=== PATIENT | male | born 1970 | race Caucasian/White ===

== ENCOUNTER 2020-06-14 11:22 | Outpatient (REF) | payer BC, SELFPAY | END 2020-06-14 11:23 | disposition home or self-care (01) | LOC: HO.LAB 11:22 | PROVIDERS: Visit Provider Internal Medicine | DX: Z20.828 Contact with and (suspected) exposure to other viral communicable diseases (principal) | CPT/HCPCS: C9803; U0003 ==

== ENCOUNTER 2021-07-23 17:39 | Emergency (ER) | payer BC, SELFPAY ==
--- NOTE | ~2021-07-23 | XR_ITS ---
EXAMINATION: XR CHEST CLINICAL INFORMATION: Chest pain. COMPARISON: None TECHNIQUE: Frontal view of the chest was obtained. FINDINGS: No significant abnormality is noted involving the heart, lungs, mediastinum, bony thorax or soft tissues. XR/XR chest 1V IMPRESSION: Unremarkable chest examination.
[2021-07-23 17:56] VITALS: BP 176/100; PULSE 64; RESP 18; TEMP 36.7; O2SAT 98; BMI 36.9
[2021-07-23 18:12] LABS: MANUAL DIFF FLAG NO
[2021-07-23 18:35] LABS: Troponin-I High Sensitivity < 3.5 ng/L (<3.5-35.0)
[2021-07-23 18:47] LABS: Basophils Absolute Auto 0.1 X10*3/uL (0.0-0.2); Basophils Percent Auto 0.8 % (0-2); Eosinophils Absolute Auto 0.1 X10*3/uL (0.0-0.4); Eosinophils Percent Auto 1.4 % (0-4); Hematocrit 43.1 % (42.0-52.0); Hemoglobin 14.8 g/dl (14.0-18.0); Imm Gran Abs Auto 0.03 X10*3/uL (0.00-0.03); Imm Gran Pct Auto 0.3 % (0.0-0.4); Lymphocytes Absolute Auto 2.4 X10*3/uL (1.2-4.9); Lymphocytes Percent Auto 26.4 % (20-40); Mean Corpuscular HGB Conc 34.3 g/dl (31.0-36.0); Mean Corpuscular Hemoglobin 28.5 pg (27.0-33.0); Mean Platelet Volume 10.4 fL (9.4-12.4); Monocytes Absolute Auto 0.5 X10*3/uL (0.1-1.2); Monocytes Percent Auto 5.1 % (2-11); Neutrophils Absolute Auto 5.9 x10*3/uL (2.0-8.3); Platelet Count 220 X10*3/uL (160-400); Red Blood Count 5.19 X10*6/uL (4.60-5.80); Red Cell Distribution Width 13.3 % (11.0-16.0)
[2021-07-23 22:31] VITALS: BP 164/88; PULSE 55; RESP 18; TEMP 36.7; O2SAT 97
--- NOTE | 2021-07-23 22:34 | ECG_ITS ---
Test Reason : CHEST PAIN Blood Pressure : / mmHG Vent. Rate : 055 BPM Atrial Rate : 055 BPM P-R Int : 170 ms QRS Dur : 090 ms QT Int : 450 ms P-R-T Axes : 060 046 017 degrees QTc Int : 430 ms Sinus bradycardia Otherwise normal ECG When compared with ECG of 23-JUL-2021 17:58, No significant change was found Referred By: Princess Smith Electronically Signed By:Juanito Pérez
[2021-07-23 22:41] LABS: Alanine Aminotransferase 51 U/L (0-40); Albumin Level 4.7 g/dL (3.5-5.0); Alkaline Phosphatase 80 U/L (39-117); Anion Gap 12 (12-20); Aspartate Amino Transferase 34 U/L (5-37); Bilirubin Total 0.5 mg/dL (0.0-1.0); Blood Urea Nitrogen 19 mg/dL (9-16); Calcium 9.8 mg/dL (8.4-10.2); Carbon Dioxide 28 mmol/L (22-29); Chloride 103 mmol/L (96-108); Creatinine Clr Calc Pharmacy 111.9; Estimated Glomerular Filt Rate > 60; Glucose Random 99 mg/dL (60-115); Sodium 139 mmol/L (135-145); Total Protein 7.5 g/dL (6.5-8.0)
[2021-07-23 23:22] LABS: Lipase 34 U/L (8-78)
[2021-07-23 23:46] LABS: Troponin-I High Sensitivity < 3.5 ng/L (<3.5-35.0)
--- NOTE | 2021-07-23 23:47 | ED_ITS ---
HPI - Chest Pain General Chief Complaint: Chest Pain Stated Complaint: chest and arm pain,sob Time Seen by Provider: 07/23/21 22:34 Source: patient Mode of arrival: ambulatory Limitations: no limitations History of Present Illness HPI narrative: this is a 50-year-old male past medical history significant for anxiety, hypertension, high cholesterol presenting to the emergency department with chest and headache. Patient tells me that chest pain started suddenly around 15:00 while he was sitting at his desk he tells me was substernal in nature and radiated to his left arm, he tells me he felt tingling to his left arm initially. At this time he reports no chest pain, he tells me it subsided. He also reports a frontal headache, described as bilateral, tightness to the front of the head. Tells me it feels like his typical stress headache. Patient tells me he is under lot of stress. No significant personal history of cardiac disease. Patient does not smoke. Patient tells me that his mom and dad both had heart attacks at the age is 60. He tells me that these episodes happen frequently however today's episode was more severe in nature. He denies fevers, chills, shortness of breath, nausea, vomiting, abdominal pain, back pain, neck pain , dizziness, vision changes, trauma to head. He does report good amount of anxiety. Patient tells me that when this episode happened he was not short of breath or diaphoretic. complaint: chest pain Onset (ago): hour(s) (9) Timing of current episode: episodic and now resolved Prior episodes: Yes Onset: during rest Pain location: substernal Pain radiation: left arm Severity: severe Pain scale (0-10): 10 Quality: sharp Relieving factors: nothing Exacerbating factors: nothing Treatment prior to arrival: none Related Data Previous Rx's Medication Instructions Recorded cyclobenzaprine 10 mg tablet 10 mg PO BEDTIME PRN #10 tab 07/24/21 Allergies Allergy/AdvReac Type Severity Reaction Status Date / Time No Known Allergies Allergy Unverified 02/28/20 15:06 Review of Systems Review of Systems: Constitutional : No Weight loss, No Fever, No Chills, No Fatigue, No Malaise ENT/Mouth : No sore throat, No Rhinorrhea Eyes: No Eye Pain, No Swelling, No Redness Cardiovascular : No Chest Pain, No SOB, No Dyspnea on Exertion, No Orthopnea, No Edema, No Palpitations Respiratory : No Cough, No Sputum, No Wheezing Gastrointestinal : No Nausea, No Vomiting, No Diarrhea, No Constipation, No abdominal Pain, No Hematochezia, No Melena Genitourinary : No Dysuria, No Urinary Frequency, No Hematuria, Musculoskeletal : No joint pain, No Myalgias, No Joint Swelling Skin : No Skin Lesions, No rash Neuro : No Weakness, No Numbness, No Dizziness, + Headache All other systems reviewed and are negative Yes all other systems are reviewed and are negative [facility] Past Medical History Attestation statement: The following information was validated with the patient. Source: old records reviewed and nursing notes reviewed Medical History High cholesterol HTN (hypertension) Pre-diabetes Social History Social History Advance Directives: No Advance Directives Information Provided: No Physical Exam Vital Signs: Vital Signs: Last Vital Signs Temp 98.1 F 07/23/21 22:31 Pulse 55 07/23/21 22:31 Resp 18 07/23/21 22:31 BP 164/88 H 07/23/21 22:31 Pulse Ox 97 07/23/21 22:31 BMI result Body Mass Index 36.9 VSS Appearance: Alert.? Oriented X3.? No acute distress.? Head: Normocephalic, atraumatic, no step-offs or deformities Eyes: Pupils equal, round and reactive to light.? ENT: Pharynx normal.? Neck: Normal inspection.? Neck supple.? CVS: Normal heart rate and rhythm.? Pulses normal.? Respiratory: No respiratory distress.? Breath sounds normal.? Abdomen: Soft and nontender.? Skin: Skin warm and dry.? Normal skin color.? Normal skin turgor.? Extremities: No lower extremity edema.? No calf ttp. 5/5 strength to bilateral upper and lower extremities Back: No midline tenderness, no C-spine tenderness, full range of motion, no CVA tenderness bilaterally Neuro: Oriented X 3.? No motor deficit.? No sensory deficit. Normal eusslt-[id number], xevt-wp-[id number], normal tandem gait. Course Reevaluation(s) Reevaluation #1: Patient's CBC within normal limits. Chemistry without acute electrolyte abnormalities. Troponin negative x2. EKG nonischemic it shows normal sinus rhythm with normal rate, normal WY, normal QT / QTC. Vital signs stable. Unlikely that chest pain is ACS. Likely anxiety. CXR wnl. At this time I feel as though patient is safe for discharge home, he should follow-up with his PCP and Cardiology. I will provide him cardiology's information I have advised him to call tomorrow to schedule an appointment as he may require a Holter monitor for further evaluation. I have given patient strict return precautions outlined them on his discharge, advised him to return if new or worsening symptoms. Time: 23:53 Reevaluation #2: Repeat EKG sinus bradycardia no signs of acute ischemia. Patient much more relaxed, tells me he is feeling, at this time. Comfortable discharge home. Patient denies CP, SOB, EATON at this time Time: 00:26 MDM - Chest Pain MDM Narrative Medical decision making narrative: 50 yo m pmhx HTN, hypercholesterolemia, anxiety presents with sudden onset substernal chest pain w/ radiation to left arm X1 episode around 3:00pm since then has subsided. PE benign Patient's neuro exam nonfocal, normal cerebellar function, unlikely stroke or posterior infarct. Unlikely intracranial hemorrhage, patient is not on blood thinners, feels like his typical headache, no vision changes or dizziness. No need for imaging at this time. Patient's chest pain has now subsided, unlikely that this is ACS. History and physical examination not consistent with aortic dissection. History and physical also not consistent with pulmonary embolism. Plan- labs, ekg, trop. Medical Records Data Attestation: I reviewed the patient's medical records. Lab Data Attestation: I reviewed the patient's lab results. Result diagrams: 07/23/21 18:08 07/23/21 21:55 Labs: Lab Results 07/23/21 07/23/21 07/23/21 Range/Units 18:07 18:08 21:55 WBC 9.0 (4.8-10.8) X10*3/uL RBC 5.19 (4.60-5.80) X10*6/uL Hgb 14.8 (14.0-18.0) g/dl Hct 43.1 (42.0-52.0) % MCV 83.0 (80.0-98.0) fL MCH 28.5 (27.0-33.0) pg MCHC 34.3 (31.0-36.0) g/dl RDW 13.3 (11.0-16.0) % Plt Count 220 (160-400) X10*3/uL MPV 10.4 (9.4-12.4) fL Immature Gran % (Auto) 0.3 (0.0-0.4) % Neut % (Auto) 66.0 (45-73) % Lymph % (Auto) 26.4 (20-40) % [place] % (Auto) 5.1 (2-11) % Eos % (Auto) 1.4 (0-4) % Baso % (Auto) 0.8 (0-2) % Lymph # (Auto) 2.4 (1.2-4.9) X10*3/uL [place] # (Auto) 0.5 (0.1-1.2) X10*3/uL Eos # (Auto) 0.1 (0.0-0.4) X10*3/uL Baso # (Auto) 0.1 (0.0-0.2) X10*3/uL Abs Immat Gran (auto) 0.03 (0.00-0.03) X10*3/uL Absolute Neuts (auto) 5.9 (2.0-8.3) x10*3/uL Absolute Nucleated RBC 0.000 (0.0-0.012) X10*3/uL Nucleated RBC % (auto) 0.0 (0.0-0.2) /100WBC Sodium 139 (135-145) mmol/L Potassium 4.0 (3.3-5.1) mmol/L Chloride 103 (96-108) mmol/L Carbon Dioxide 28 (22-29) mmol/L Anion Gap 12 (12-20) BUN 19 H (9-16) mg/dL Creatinine 1.09 (0.5-1.4) mg/dL Estim Creat Clear Calc 111.9 Estimated GFR > 60 Random Glucose 99 (60-115) mg/dL Calcium 9.8 (8.4-10.2) mg/dL Total Bilirubin 0.5 (0.0-1.0) mg/dL AST 34 (5-37) U/L ALT 51 H (0-40) U/L Alkaline Phosphatase 80 (39-117) U/L Troponin I High Sens < 3.5 (<3.5-35.0) ng/L Total Protein 7.5 (6.5-8.0) g/dL Albumin 4.7 (3.5-5.0) g/dL Lipase 34 (8-78) U/L 07/23/21 Range/Units 22:47 WBC (4.8-10.8) X10*3/uL RBC (4.60-5.80) X10*6/uL Hgb (14.0-18.0) g/dl Hct (42.0-52.0) % MCV (80.0-98.0) fL MCH (27.0-33.0) pg MCHC (31.0-36.0) g/dl RDW (11.0-16.0) % Plt Count (160-400) X10*3/uL MPV (9.4-12.4) fL Immature Gran % (Auto) (0.0-0.4) % Neut % (Auto) (45-73) % Lymph % (Auto) (20-40) % [place] % (Auto) (2-11) % Eos % (Auto) (0-4) % Baso % (Auto) (0-2) % Lymph # (Auto) (1.2-4.9) X10*3/uL [place] # (Auto) (0.1-1.2) X10*3/uL Eos # (Auto) (0.0-0.4) X10*3/uL Baso # (Auto) (0.0-0.2) X10*3/uL Abs Immat Gran (auto) (0.00-0.03) X10*3/uL Absolute Neuts (auto) (2.0-8.3) x10*3/uL Absolute Nucleated RBC (0.0-0.012) X10*3/uL Nucleated RBC % (auto) (0.0-0.2) /100WBC Sodium (135-145) mmol/L Potassium (3.3-5.1) mmol/L Chloride (96-108) mmol/L Carbon Dioxide (22-29) mmol/L Anion Gap (12-20) BUN (9-16) mg/dL Creatinine (0.5-1.4) mg/dL Estim Creat Clear Calc Estimated GFR Random Glucose (60-115) mg/dL Calcium (8.4-10.2) mg/dL Total Bilirubin (0.0-1.0) mg/dL AST (5-37) U/L ALT (0-40) U/L Alkaline Phosphatase (39-117) U/L Troponin I High Sens < 3.5 (<3.5-35.0) ng/L Total Protein (6.5-8.0) g/dL Albumin (3.5-5.0) g/dL Lipase (8-78) U/L ECG Data ECG #1: Attestation: I personally reviewed and interpreted this ECG as follows: ECG interpretation date: 07/24/21 ECG interpretation time: 00:00 Prior ECG tracings: available for review Interpretation: Ventricular rate of 65, WY normal, QRS normal, QT / QTC normal. EKG shows normal sinus rhythm no ST elevations concerning for ischemia. No previous to compare with. ECG #2: Attestation: I personally reviewed and interpreted this ECG as follows: ECG interpretation date: 07/24/21 ECG interpretation time: 00:26 Prior ECG tracings: available for review Interpretation: Ventricular rate of 55, WY normal, QRS normal, QT / QTC normal. EKG shows sinus bradycardia. No ST elevations or inversions concerning for ischemia. Patient is now in sinus bradycardia on much more calm than when it the 1st EKG was obtained. Critical Care Time Critical Care Time Critical Care Time: No Discharge Plan Discharge Clinical Impression: Chest pain not due to acute coronary syndrome, Acute tension headache Patient Disposition: Home, Self-Care Additional Instructions: Take your medications as prescribed. If you were prescribed antibiotics today, it is important that you take your medication to their entirety, do not skip any doses, do not finish them early. Follow-up with your primary care provider this week . Please call cardiology tomorrow to schedule an appointment. Return to the emergency department with new or worsening symptoms. Such as chest pain, shortness of breath, headache, vision changes, dizziness, lethargy, changes in mentation, fevers, chills, nausea, vomiting, abdominal pain. In case of emergency call 911 Prescriptions: New cyclobenzaprine 10 mg tablet 10 mg PO BEDTIME PRN (Reason: muscle spasm) Qty: 10 0RF Referrals: Juanis Gutiérrez MD [Primary Care Provider] - 2 days Juanito Pérez MD [Physician] - 2 days Stand Alone Forms: Work/School Release
[2021-07-23] MEDS: Cyclobenzaprine HCl 10 MG TABLET PO (23:55)
[2021-07-23] MEDS: Ketorolac Tromethamine 30 MG/ML VIAL IM (23:55)
--- NOTE | 2021-07-23 23:59 | ECG_ITS ---
Test Reason : CHEST PAIN Blood Pressure : / mmHG Vent. Rate : 065 BPM Atrial Rate : 065 BPM P-R Int : 168 ms QRS Dur : 090 ms QT Int : 402 ms P-R-T Axes : 060 049 030 degrees QTc Int : 418 ms Normal sinus rhythm Normal ECG No previous ECGs available Referred By: Princess Smith Electronically Signed By:Juanito Pérez
[2021-07-24 00:28] VITALS: BP 174/95; PULSE 51; RESP 18; O2SAT 112
== END 2021-07-24 00:43 | disposition home or self-care (01) ==
PROVIDERS: Physician Assistant; Emergency Provider Emergency Medicine; PCP Internal Medicine
DX: R07.89 Other chest pain (principal); G44.209 Tension-type headache, unspecified, not intractable; R06.02 Shortness of breath; M79.602 Pain in left arm; M79.601 Pain in right arm; Z79.899 Other long term (current) drug therapy
CPT/HCPCS: 36415; 71045; 80053; 83690; 84484; 85025; 93005; 96372; 99284; J1885

== ENCOUNTER → 2021-07-29 13:55 | Outpatient (BNVA) | payer BC, SELFPAY | PROVIDERS: PCP Internal Medicine; Visit Provider Nurse Practitioner Family ==

== ENCOUNTER → 2021-08-10 07:17 | Outpatient (REF) | payer BC, SELFPAY ==
--- NOTE | 2021-08-10 07:26 | CA_ITS ---
Transthoracic Echocardiogram Patient (Last, First, Middle): Nicko Gentile P Gender: Male Date of : 1970 Age: 50 Procedure Date: 08/10/2021 Procedure Type: Transthoracic Echocardiogram Location: OP Height: 185.42 cm Weight: 127.01 kg BSA: 2.48 m2 Heart Rate: bpm BP: 135 / 82 mmHg Peripheral Equipment Operator: JOLYNN Referring MD: Brittaney Christine DICTATING MACHINE TYPIST-C Symptoms: G47.30 - Sleep apnea, unspecified Study Quality: Fair ECG Rhythm: Sinus Conclusions: - The left ventricular systolic function is normal. The calculated ejection fraction is 58% by biplane method. - No obvious valvular pathology seen on this study. - There is mild dilatation of the ascending aorta measuring 4.00 cm. Findings Left Ventricle Normal left ventricular cavity size. The left ventricular systolic function is normal. The calculated ejection fraction is 58% by biplane method. There is no evidence of regional wall motion abnormalities. Diastolic function is normal for age. There is mild septal asymmetric hypertrophy. Right Ventricle Normal right ventricular cavity size and systolic function. Atria Both atria are normal in size. Aortic Valve There is a normal trileaflet aortic valve. There is no aortic valve stenosis. There is no aortic valve regurgitation. Mitral Valve The mitral valve appears normal. There is no mitral valve regurgitation. There is no mitral valve stenosis. Pulmonic Valve The pulmonic valve was not well visualized. Tricuspid Valve There is trace tricuspid valve regurgitation. The pulmonary artery systolic pressure is normal. Great Vessels There is mild dilatation of the ascending aorta measuring 4.00 cm. Venous The inferior vena cava is normal in size and collapses greater than 50% with inspiration. Pericardium/Pleural There is no evidence of pericardial effusion. Prior Study Comparison No prior study available for comparison. Recommendations, Care & Conclusions No obvious valvular pathology seen on this study. Measurements 2D Linear Measurements IVSd: 1.15 0.6-0.9/0.6-1.0 cm LVIDd: 5.38 3.9-5.3/4.2-5.9 cm LVIDd Index: 2.17 2.4-3.2/2.2-3.1 cm/m2 LVIDs: 2.64 2.0-3.6 cm LVPWd: 0.89 0.7-1.1 cm Ao Root: 3.60 2.1-3.5 cm LA Diam: 3.70 2.7-3.8/3.0-4.0 cm LAIDs Index: 1.49 1.5-2.3 cm/m2 LV Mass: 262.57 67-162/88-224 g LV Mass Index: 105.87 43-95/49-115 g/m2 LVOT Diam: 2.30 3.0+(-)1.3 cm 2D Systolic Function EF 4C: 59.90 >55% EF 2C: 56.20 >55% EF BiP: 57.70 >55% Mitral Valve MV Pk E: 0.78 MV PK A: 0.69 MV Decel Time: 241.00 E/A: 1.10 E'Lateral: 10.30 E'Medial: 6.96 E/E' Med: 11.30 E/E' Lat: 7.60 PHT: 71.00 MVA PHT: 3.10 Decel [place]: 3.25 Aortic Valve AoV Pk [place]: 1.41 AoV Mn [place]: 1.06 AoV VTI: 0.36 AoV Pk Grad: 8.00 Aov Mn Grad: 5.00 CANDACE Cont.VTI: 2.77 LVOT LVOT Pk [place]: 1.08 LVOT Mn [place]: 0.68 LVOT VTI: 0.24 LVOT Pk Grad: 5.00 LVOT Mn Grad: 2.00 LVOT Diam: 2.30 LVOT Area: 4.15 Diastolic Function MV Pk E: 0.78 MV Pk A: 0.69 E/A: 1.10 E'Medial: 6.96 E/E' Med: 11.30 E' Laterial: 10.30 E/E' Lat: 7.60 Right Ventricle TAPSE (mm): 19.40 TVS' [place]: 12.70 Tricuspid Valve TR Pk [place]eb[place]: 1.25 TR Pk Grad: 6.00 RA Press: 3.00 RVSP: 9.00 Great Vessels Aorta Ao Root-2D: 3.60 2.0-3.7 cm Ao Asc: 4.00 2.1-3.4 cm Ao Arch: 3.40 Pulmonary Valve PV Pk [place]: 1.32 Peak PV Grad: 7.00 Updated in Other Vendor System with Status of Final Marcos Dempsey MD electronically signed on 08/10/2021 12:36:14 PM with status of Final
== END ==
LOC: HO.CARD 07:17
PROVIDERS: Visit Provider Nurse Practitioner Family
DX: R07.89 Other chest pain (principal); E78.00 Pure hypercholesterolemia, unspecified; G47.30 Sleep apnea, unspecified; I10 Essential (primary) hypertension; R73.03 Prediabetes; Z82.49 Family history of ischemic heart disease and other diseases of the circulatory system
CPT/HCPCS: 93306

== ENCOUNTER → 2021-08-13 09:41 | Outpatient (REF) | payer BC, SELFPAY ==
--- NOTE | ~2021-08-13 | NM_ITS ---
Exercise Myocardial perfusion study Indication: Chest pain to evaluate for myocardial ischemia Technique: The patient was brought in for an exercise perfusion study on 08/13/2021. Patient performed exercise as per Bryant protocol and was injected 45 mCi of sestamibi was given intravenously one target HR was achieved. Images were obtained using the SPECT gamma camera interlaced with the gating device. Images were obtained in supine position. Resting perfusion study was performed on 08/17/2021. Patient was administered 45 mCi of sestamibi intravenously at rest. Images were then obtained in supine position. Images obtained with and without CT attenuation. Total DLP 140 mGy-cm Images were processed with the software and compared side to side in short axis, horizontal long axis and vertical long axis views. Findings: The stress perfusion study showed non attenuated images show mildly reduced uptake in the basal anterior and basal inferior wall of the LV myocardium. Attenuation corrected images show minimally reduced uptake in the distal septum and apex of the LV myocardium.. The gated study shows normal LV systolic function with calculated LVEF of 63%. LV cavity is normal in size. The gated study shows normal systolic wall thickening and contraction of all segments. There is no transient ischemic dilation. Resting study shows non attenuated images show mildly reduced uptake in the anterior wall as well as the basal inferior wall of the LV myocardium. Attenuation corrected images show moderately reduced uptake in a small focal area of the distal anterior wall of the LV myocardium.. Gating at rest reveals normal systolic wall motion with visually estimated ejection fraction at greater than 60 %. The findings are consistent with likely normal myocardial perfusion. NM/NM cardiolite stress test Impression: 1. Normal myocardial perfusion 2. Gated LVEF is 63% 3. Transient ischemic dilatation not present Stress EKG is negative for ischemia
--- NOTE | 2021-08-13 09:44 | CA_ITS ---
Acquisition Time: 2021-08-13 10:08:25 Total Exercise Time: 00:10:00 Test Indications: CP Medications: SEE CHART Protocol: ELADIO Max HR: 150 BPM 88% of Pred: 169 BPM Max BP: 190/108 mmHG Max Work Load: 11.7 METS Exercise stress test with exercise 10 min of Eladio protocol, without anginal symptoms, without arrythmia, with normotensive response to execise, without EKG changes meeting criteria for ischemia. Nuclear images pending. Test reviewed with Dr Pérez. On arrival to stress lab, BP 190/108. He reported anxiety. Allowed to rest in recliner until BP down to 158/96 prior to start of exercise. Referred By: Brittaney Christine Overread By: BRITTANEY CHRISTINE
== END ==
LOC: HO.CARD 09:41
PROVIDERS: Visit Provider Nurse Practitioner Family
DX: R07.89 Other chest pain (principal); I10 Essential (primary) hypertension; E78.00 Pure hypercholesterolemia, unspecified; G47.30 Sleep apnea, unspecified; R73.03 Prediabetes; Z82.49 Family history of ischemic heart disease and other diseases of the circulatory system
CPT/HCPCS: 78452; 93017; A9500

== ENCOUNTER → 2021-09-10 12:50 | Outpatient (BNVA) | payer BC, SELFPAY | PROVIDERS: PCP Internal Medicine; Visit Provider Nurse Practitioner Family | DX: Z13.89 Encounter for screening for other disorder (principal) ==

== ENCOUNTER → 2022-08-11 08:23 | Outpatient (REF) | payer BC, SELFPAY ==
--- NOTE | 2022-08-11 08:26 | CA_ITS ---
Transthoracic Echocardiogram Patient (Last, First, Middle): Nicko Gentile P Gender: Male Date of : 1970 Age: 51 Procedure Date: 08/11/2022 Procedure Type: Transthoracic Echocardiogram Location: OP Height: 185.42 cm Weight: 126.55 kg BSA: 2.48 m2 Heart Rate: 61 bpm BP: 114 / 68 mmHg Finishing Trimmer: SARA Referring MD: Brittaney Christine UNDERWEAR TRIMMER-C Art Therapy Certified Supervisor: Nate Stauffer MD Symptoms: I77.810 - Thoracic aortic ectasia Study Quality: Adequate w contrast ECG Rhythm: Sinus Conclusions: - 1. Normal LV systolic function with mild LVH with impaired relaxation abnormality 2. Normal cardiac valvular Doppler 3. Normal RVSP 4. Mildly dilated ascending aorta at 4 cm 5. No gross pericardial effusion. Findings Procedure Information Contrast agent, definity, is being given per protocol without apparent complications. Left Ventricle Normal left ventricular size and systolic function. There is mildly increased left ventricular wall thickness. The visually estimated ejection fraction is between 60-65%. Spectral Doppler is indicative of an impaired relaxation filling pattern. E/E prime ratio is between 8 and 15 consistent with indeterminate filling pressures. Right Ventricle Normal right ventricular cavity size and systolic function. Atria The left atrium is normal in size. Interatrial shunt cannot be excluded. The right atrium was not well visualized. Aortic Valve Normal aortic valve structure and function. There is no aortic valve stenosis. There is no aortic valve regurgitation. Mitral Valve Normal mitral valve structure and function. There is trace mitral valve regurgitation. There is no mitral valve stenosis. Pulmonic Valve The pulmonic valve was not well visualized. Tricuspid Valve Likely normal tricuspid valve structure and function. There is trace tricuspid valve regurgitation. The right ventricular systolic pressure is normal. Normal right atrial pressure. Great Vessels The pulmonary artery was not well visualized. There is mild dilatation of the ascending aorta measuring 4.00 cm. Venous The inferior vena cava is normal in size and collapses greater than 50% with inspiration. Pericardium/Pleural There is no evidence of pericardial effusion. Prior Study Comparison No significant change compared to prior study dated: 08/10/2021. Measurements 2D Linear Measurements IVSd: 1.25 0.6-0.9/0.6-1.0 cm LVIDd: 5.53 3.9-5.3/4.2-5.9 cm LVIDd Index: 2.23 2.4-3.2/2.2-3.1 cm/m2 LVIDs: 3.43 2.0-3.6 cm LVPWd: 1.04 0.7-1.1 cm LA Diam: 3.60 2.7-3.8/3.0-4.0 cm LAIDs Index: 1.45 1.5-2.3 cm/m2 LV Mass: 321.46 67-162/88-224 g LV Mass Index: 129.62 43-95/49-115 g/m2 LVOT Diam: 2.30 3.0+(-)1.3 cm 2D Systolic Function EF 4C: 64.30 >55% EF 2C: 61.50 >55% EF BiP: 61.10 >55% Mitral Valve MV Pk E: 0.68 MV PK A: 0.66 MV Decel Time: 242.00 E/A: 1.00 E'Lateral: 7.40 E'Medial: 6.20 E/E' Med: 11.00 E/E' Lat: 9.20 PHT: 71.00 MVA PHT: 3.10 Decel [place]: 2.82 Aortic Valve AoV Pk [place]eb[place]: 1.36 AoV Pk Grad: 7.00 CANDACE: 2.75 LVOT LVOT Pk [place]: 0.90 LVOT Mn [place]: 0.65 LVOT VTI: 0.19 LVOT Pk Grad: 3.00 LVOT Mn Grad: 2.00 LVOT Diam: 2.30 LVOT Area: 4.15 Diastolic Function MV Pk E: 0.68 MV Pk A: 0.66 E/A: 1.00 E'Medial: 6.20 E/E' Med: 11.00 E' Laterial: 7.40 E/E' Lat: 9.20 Right Ventricle TAPSE (mm): 20.90 TVS' [place]: 14.30 Tricuspid Valve RA Press: 3.00 Great Vessels Aorta Sinus of Valsalva: 3.60 2.0-3.5 cm Ao Asc: 4.00 2.1-3.4 cm Ao Arch: 3.40 Ao Desc: 2.30 Pulmonary Veins Pulm Vein S/D 1.00 Pulmonary Valve PV Pk Beb[place]: 1.34 Peak PV Grad: 7.00 Updated in Other Vendor System with Status of Final Nate Stauffer MD electronically signed on 08/12/2022 12:19:13 PM with status of Final
== END ==
LOC: HO.CARD 08:23
PROVIDERS: PCP Nurse Practitioner Family; Visit Provider Nurse Practitioner Family
DX: R07.89 Other chest pain (principal); I77.810 Thoracic aortic ectasia; G47.30 Sleep apnea, unspecified
CPT/HCPCS: 93306; Q9957

== ENCOUNTER → 2022-09-09 14:29 | Outpatient (BNVA) | payer BC, SELFPAY | PROVIDERS: PCP Nurse Practitioner Family; Visit Provider Internal Medicine Cardiovascular Disease | DX: I10 Essential (primary) hypertension (principal); I77.810 Thoracic aortic ectasia | CPT/HCPCS: 93005 ==

== ENCOUNTER → 2022-09-24 14:49 | Outpatient (BNVA) | payer BC, SELFPAY | PROVIDERS: PCP Nurse Practitioner Family; Visit Provider Internal Medicine Cardiovascular Disease | DX: Z79.899 Other long term (current) drug therapy (principal) | CPT/HCPCS: 99211 ==

== ENCOUNTER → 2022-10-20 08:19 | Outpatient (BNVA) | payer BC, SELFPAY | PROVIDERS: PCP Nurse Practitioner Family; Visit Provider Nurse Practitioner Family ==

== ENCOUNTER → 2022-12-09 15:31 | Outpatient (BNVA) | payer BC, SELFPAY | PROVIDERS: PCP Nurse Practitioner Family; Referring Provider Nurse Practitioner Family; Visit Provider Nurse Practitioner Family ==

== ENCOUNTER 2023-01-20 09:16 | Outpatient (REF) | payer BC, SELFPAY ==
[2023-01-20 10:44] LABS: Alanine Aminotransferase 33 U/L (0-40); Albumin Level 4.5 g/dL (3.5-5.0); Alkaline Phosphatase 66 U/L (39-117); Anion Gap 11 (12-20); Aspartate Amino Transferase 21 U/L (5-37); Bilirubin Total 0.6 mg/dL (0.0-1.0); Blood Urea Nitrogen 15 mg/dL (9-16); Calcium 9.8 mg/dL (8.4-10.2); Carbon Dioxide 27 mmol/L (22-29); Chloride 107 mmol/L (96-108); Estimated Glomerular Filt Rate > 60; Glucose Random 107 mg/dL (60-115); Sodium 141 mmol/L (135-145); Total Protein 7.5 g/dL (6.5-8.0)
[2023-01-20 11:18] LABS: Estimated Average Glucose 114 mg/dL; Hemoglobin A1c % 5.6 %
== END 2023-01-20 09:17 | disposition home or self-care (01) ==
LOC: HO.LAB 09:16
PROVIDERS: Visit Provider Nurse Practitioner Family
DX: I10 Essential (primary) hypertension (principal); R73.03 Prediabetes
CPT/HCPCS: 36415; 80053; 83036

== ENCOUNTER 2024-11-01 09:35 | Outpatient (AMB) | payer BC, SELFPAY ==
--- OUTSIDE RECORDS SUMMARY | 2024-11-01 09:52 | XMS_ITS | Clinical Summary ---
Author Organization [facility] Address [address] [place] [id number] Care Team Providers Care Physical Therapy Teacher Name Role Phone Juanis Gutiérrez MD Primary Care Provider [phone] Medications Medication Sig Dispensed Refills Start Date End Date Status amLODIPine (NORVASC) tablet 10 mg Take 10 mg by mouth daily. 0 10/27/2020 Active hydroCHLOROthiazide (HYDRODIURIL) tablet 25 mg TAKE ONE TABLET BY MOUTH EVERY DAY 0 11/04/2020 Active Social History Tobacco Use Types Packs/Day Years Used Date Smoking Tobacco: Never Assessed Sex and Gender Information Value Date Recorded Sex Assigned at Not on file Gender Identity Not on file Sexual Orientation Not on file Job Start Date Occupation Industry Not on file Not on file Not on file Last Filed Vital Signs Vital Sign Reading Time Taken Comments Blood Pressure - - Pulse - - Temperature - - Respiratory Rate - - Oxygen Saturation - - Inhaled Oxygen Concentration - - Weight 99.8 kg (220 lb) 07/15/2020 3:32 PM EST Height 185.4 cm (6' 1 ) 07/15/2020 3:32 PM EST Body Mass Index 29.03 07/15/2020 3:32 PM EST Plan of Treatment Health Maintenance Due Date Last Done Comments Hepatitis B Vaccines (1 of 3 - 3-dose series) 1970 Hepatitis C Screening 1970 COVID-19 Vaccine (#1) 05/13/1970 Depression Screening 1981 BMI Counseling 11/12/1987 Preventative Health Evaluation 11/12/1987 DTap / Tdap / Td (1 - Tdap) 1988 Colon Cancer Screening (Colonoscopy) 2014 Shingrix-Zoster Vaccine (1 of 2) 11/12/2019 Influenza Vaccine (#1) 2024 Pneumococcal Vaccine Aged Out No long er eligible based on patient's age to complete this topic RSV Ped < 20 months Aged Out No longe r eligible based on patient's age to complete this topic Care Teams Physical Therapy Teacher Relationship Specialty Start Date End Date Juanis Gutiérrez MD [address] [place] [id number] PCP - General Internal Medicine 07/08/20
[2024-11-01 10:00] VITALS: BP 168/90; PULSE 58; BMI 39.0
--- NOTE | 2024-11-01 10:00 | A.OFFVIS_ITS ---
Vital Signs 11/01/24 10:00 Height 6 ft 1 in Weight 295 lb 13.765 oz BMI 39.0 BP 168/90 H Blood Pressure Location Lt brachial Position Sitting Pulse 58 Pulse Source Monitor Intake Visit Reasons: Follow up- BP Check Factory Maintenance Manager Required: No Allergies lisinopril Adverse Reaction (Intermediate, Verified 11/01/24 10:02) Cough Medication List - Last Reconciled 11/01/24 by Brittaney Christine NP-Liza lisinopril 20 mg PO DAILY HPI HPI Follow up- BP Check: Details: Nicko is a 53-year-old male with past medical history of obesity, hypertension, pre diabetes, hyperlipidemia, obstructive sleep apnea with CPAP use, family history CAD who is being followed for hypertension. His last prior visit was 12/09/2022. Today he reports that since his last visit his blood pressure has been running elevated. He says when he is at work he finds it runs high around 160/80s, when he is at home and relaxed it can be as low as 130/80. He has a high stressful job which contributes to this. He has been trying to lose weight and has been unable. He does go to the gym and tolerates exercise well. His PCP referred him to the weight loss program and he has not had an appointment as of yet. He feels the losartan stopped working and he went back to lisinopril. The lisinopril again is giving him a cough. He was intolerant to other medicines in the past. He had leg swelling with amlodipine, gout with hydrochlorothiazide, foggy feeling with carvedilol. No chest discomfort at rest or with activity. No shortness of breath, palpitations, dizziness, presyncope, syncope, PND, orthopnea or edema. [facility] Medical History Family history of premature coronary artery disease Sleep apnea HTN (hypertension) Pre-diabetes High cholesterol Family History Father CAD (coronary artery disease) Pacemaker Stented coronary artery Mother CAD (coronary artery disease) Stented coronary artery Paternal Uncle No problems noted. Social History Alcohol intake: current Alcohol intake frequency: a few times a month Patient Tobacco Use Status: Never used Tobacco Review of Systems Const All systems reviewed & are unremarkable except as noted in HPI and below ENT Denies dizziness Card Denies chest pain, Denies chest pain at rest, Denies chest pain with activity, Denies rapid heart rate, Denies pedal edema, Denies edema, Denies leg edema, Denies lightheadedness, Denies palpitations, Denies dyspnea, Denies dyspnea on exertion and Denies orthopnea Resp Details: cough from Lisinopril Reports cough, Denies dyspnea and Denies dyspnea on exertion GI Denies hematochezia and Denies change in stool character Musc Denies abnormal gait, Denies limited range of motion, Denies muscle cramps, Denies muscle weakness, Denies numbness, Denies radiating pain into limb, Denies stiffness and Denies tingling Neuro Denies abnormal gait, Denies dizziness, Denies numbness and Denies tingling Endo Denies palpitations Physical Exam Vital Signs: Last Vital Signs Pulse 58 11/01/24 10:00 BP 168/90 H 11/01/24 10:00 BMI result Body Mass Index 39.0 Const General: cooperative, healthy appearing, comfortable and no acute distress Orientation/consciousness: patient oriented x3 Neck Neck: Yes normal visual inspection and Yes no JVD Carotids: normal carotid upstroke Resp Effort & Inspection: normal respiratory effort Auscultation: clear to auscultation bilaterally, no crackles, no rales, no rhonchi and no wheezes Cardio Jugular venous distension: no JVD Rate: regular rate Rhythm: regular rhythm Heart sounds: S1 normal heart sound present, S2 normal heart sound present, no gallops, no murmurs and no rubs GI Inspection: Yes normal to inspection Neuro General: patient oriented x3 Extrem General: Yes normal to inspection Psych Appearance: grossly normal Mental Status: mental status grossly normal Speech and movement: Normal speech and movement present Office Procedures EKG Details: Today, read by me, sinus bradycardia, rate 58, Qtc 408ms [id number], Complete Assessment & Plan Assessment & Plan (1) HTN (hypertension): Code(s): I10 - Essential (primary) hypertension Category: Medical Plan: Blood pressure goal less than 130/80. Blood pressure elevated today. He is taking only lisinopril 20 mg daily and has a cough. He said the losartan stopped working. Will try valsartan 80 mg b.i.d.. Will update echocardiogram. Office blood pressure check in 2-3 weeks and further med titration to be determined at that time. Low-salt diet, weight loss, exercise as tolerated. Cardiology office visit in 6 months, sooner if needed (2) Mild ascending aorta dilatation: Code(s): I77.810 - Thoracic aortic ectasia Category: Medical Plan: Echocardiogram 08/11/2022 with normal EF and dilated ascending aorta at 4.0 cm . Patient is of large stature which may contribute to the dilated readings.? Importance of good blood pressure control is essential. Will update echo and call him with results Plan Time spent on chart review, documentation, interviewed assessment I discussed the plan to transition to valsartan to manage hypertension, explaining the rationale and expected benefits in reducing blood pressure without the cough associated with lisinopril. I outlined the importance of CPAP adherence for managing sleep apnea, which supports hypertension control. I ordered an echocardiogram due to a prior aortic size observation, ensuring regular cardiac evaluations. Discussions included weight loss benefits, stressing exercise and dietary modifications, and reducing sodium intake. I assured the patient that timely follow-ups would be scheduled, and medication effectiveness monitored closely, expecting improvements in his overall cardiovascular health. Orders: Orders CA echo transthoracic complete Today I10 - Essential (primary) hypertension, I77.810 - Thoracic aortic ectasia Medications: New valsartan change from lisinopril 80 mg PO BID 60 tabs 3RF Patient Instructions: - Start valsartan 80 mg twice daily; stop lisinopril. - Continue using CPAP every night. - Cut down on salt intake. - Exercise regularly and follow a healthy diet for weight loss. - Follow up with the cardiology clinic for further blood pressure monitoring. - Office blood pressure check in 2-3 weeks - Schedule an echocardiogram and follow the instructions given for it. - Contact our office if you experience any new or worsening symptoms. - Expect a follow-up in six months but anticipate interim contact for blood pressure updates. Patient was informed and verbally consented to the use of an ambient scribe for clinic note documentation during this visit. Coding Level of Care Code Est Pt Level 4 (43837) Complex EM visit Add On G2211 Diagnoses HTN (hypertension) I10 Mild ascending aorta dilatation I77.810 CPT Codes EKG - CPT: 74691-[id number], Complete ([id number]) Time Spent (min) 28
== END 2024-11-01 11:02 | disposition home or self-care (01) ==
LOC: HO.HCS 09:35
PROVIDERS: PCP Nurse Practitioner Family; Visit Provider Nurse Practitioner Family
DX: I10 Essential (primary) hypertension (principal); I77.810 Thoracic aortic ectasia
CPT/HCPCS: 93010; 99214

== ENCOUNTER → 2024-11-01 09:35 | Outpatient (BNVA) | payer BC, SELFPAY | PROVIDERS: PCP Nurse Practitioner Family; Visit Provider Nurse Practitioner Family | DX: I10 Essential (primary) hypertension (principal) | CPT/HCPCS: 93005 ==

== ENCOUNTER → 2024-12-04 09:48 | Outpatient (REF) | payer BC, SELFPAY ==
--- NOTE | 2024-12-04 09:51 | CA_ITS ---
Transthoracic Echocardiogram Patient (Last, First, Middle): Nicko Gentile P Gender: Male Date of : 1970 Age: 54 Procedure Date: 12/04/2024 Procedure Type: Transthoracic Echocardiogram Location: OP Height: 185.42 cm Weight: 133.81 kg BSA: 2.54 m2 Heart Rate: 55 bpm BP: 142 / 82 mmHg Application Engineer: SB Referring MD: Brittaney Christine GRAPHIC TECHNICIAN-C Symptoms: I77.810 - Thoracic aortic ectasia Study Quality: Adequate w contrast ECG Rhythm: Sinus Conclusions: - The left ventricular systolic function is normal. The calculated ejection fraction is 60% by biplane method. - There is moderate septal asymmetric hypertrophy. - No obvious valvular pathology seen on this study. - There is mild dilatation of the ascending aorta measuring 4.20 cm. Findings Procedure Information Contrast agent, definity, is being given per protocol without apparent complications. Left Ventricle Normal left ventricular cavity size. The left ventricular systolic function is normal. The calculated ejection fraction is 60% by biplane method. There is no evidence of regional wall motion abnormalities. Diastolic function is normal for age. There is moderate septal asymmetric hypertrophy. Right Ventricle Mildly increased right ventricular cavity size. There is normal right ventricular systolic function. Aortic Valve There is a normal trileaflet aortic valve. There is no aortic valve stenosis. There is no aortic valve regurgitation. Mitral Valve The mitral valve appears normal. There is no mitral valve regurgitation. There is no mitral valve stenosis. Pulmonic Valve The pulmonic valve is likely normal. Tricuspid Valve There is trace tricuspid valve regurgitation. Tricuspid regurgitation envelope is inadequate for calculation of right ventricular systolic pressure. Great Vessels There is mild dilatation of the ascending aorta measuring 4.20 cm. Venous The inferior vena cava is normal in size and collapses greater than 50% with inspiration. Pericardium/Pleural There is no evidence of pericardial effusion. Prior Study Comparison Changes noted compared to prior study dated: 08/11/2022. Slight increase in ascending aortic size. Recommendations, Care & Conclusions No obvious valvular pathology seen on this study. Measurements 2D Linear Measurements IVSd: 1.42 0.6-0.9/0.6-1.0 cm LVIDd: 5.37 3.9-5.3/4.2-5.9 cm LVIDd Index: 2.11 2.4-3.2/2.2-3.1 cm/m2 LVIDs: 3.39 2.0-3.6 cm LVPWd: 0.81 0.7-1.1 cm LA Diam: 3.70 2.7-3.8/3.0-4.0 cm LAIDs Index: 1.46 1.5-2.3 cm/m2 LV Mass: 295.85 67-162/88-224 g LV Mass Index: 116.48 43-95/49-115 g/m2 LVOT Diam: 2.40 3.0+(-)1.3 cm 2D Systolic Function EF 4C: 58.40 >55% EF 2C: 62.40 >55% EF BiP: 59.60 >55% Mitral Valve MV Pk E: 0.85 MV PK A: 0.62 MV Decel Time: 164.00 E/A: 1.40 E'Lateral: 9.46 E'Medial: 6.31 E/E' Med: 13.50 E/E' Lat: 9.00 PHT: 48.00 MVA PHT: 4.58 Decel [place]: 5.18 Aortic Valve AoV Pk [place]: 1.35 AoV Pk Grad: 7.00 CANDACE: 2.66 LVOT LVOT Pk [place]: 0.78 LVOT Mn [place]: 0.50 LVOT VTI: 0.17 LVOT Pk Grad: 2.00 LVOT Mn Grad: 1.00 LVOT Diam: 2.40 LVOT Area: 4.52 Diastolic Function MV Pk E: 0.85 MV Pk A: 0.62 E/A: 1.40 E'Medial: 6.31 E/E' Med: 13.50 E' Laterial: 9.46 E/E' Lat: 9.00 Right Ventricle TAPSE (mm): 21.90 TVS' Beb[place]: 11.30 Tricuspid Valve RA Press: 3.00 Great Vessels Aorta Sinus of Valsalva: 3.80 2.0-3.5 cm Ao Asc: 4.20 2.1-3.4 cm Pulmonary Valve PV Pk Bebeto: 1.09 Peak PV Grad: 5.00 Updated in Other Vendor System with Status of Final Marcos Dempsey MD electronically signed on 12/05/2024 11:16:05 AM with status of Final
--- OUTSIDE RECORDS SUMMARY | 2024-12-04 10:42 | XMS_ITS | Clinical Summary ---
Author Organization [facility] Address [address] [place] [address] Care Team Providers Care Pocket Cutter Name Role Phone Juanis Gutiérrez MD Primary Care Provider [phone] Medications Medication Sig Dispensed Refills Start Date [...] Vaccine (1 of 2) 11/12/2019 Influenza Vaccine (Season Ended) 2025 Pneumococcal Vaccine Aged Out No long er eligible based on patient's age to complete this topic RSV Ped < 20 months Aged Out No longe r eligible based on patient's age to complete this topic Care Teams Pocket Cutter Relationship Specialty Start Date End Date Juanis Gutiérrez MD [address] [place] [id number] PCP - General Internal Medicine 07/08/20
== END ==
LOC: HO.CARD 09:48
PROVIDERS: Visit Provider Nurse Practitioner Family
DX: I77.810 Thoracic aortic ectasia (principal); I10 Essential (primary) hypertension
CPT/HCPCS: 93306; Q9957

== ENCOUNTER → 2024-12-04 09:51 | Outpatient (BNV) | payer BC, SELFPAY | PROVIDERS: Visit Provider Internal Medicine | DX: I42.2 Other hypertrophic cardiomyopathy (principal) | CPT/HCPCS: 93306 ==

== ENCOUNTER 2025-01-01 13:45 | Outpatient (AMB) | payer BC, SELFPAY ==
[2025-01-01 14:04] VITALS: BP 140/80; PULSE 82; BMI 38.3
--- NOTE | 2025-01-01 14:04 | MHC.OFFVIS ---
Vital Signs 01/01/25 14:04 Height 6 ft 1 in Weight 290 lb BMI 38.3 BP 140/80 H Blood Pressure Location Lt brachial Position Sitting Pulse 82 Pulse Source Pulse Oximeter Intake Visit Reasons: BP check- problems w/ Losarten increase Allergies lisinopril Adverse Reaction (Intermediate, Verified 11/01/24 10:02) Cough valsartan Adverse Reaction (Mild, Verified 12/12/24 09:47) lethargy and tiredness Medication List - Last Reconciled 01/01/25 by Brittaney Christine NP-C losartan 50 mg PO BID testosterone 2 pumps topical DAILY HPI HPI BP check- problems w/ Losarten increase: Details: Nicko is a 54-year-old male with past medical history of obesity, hypertension, pre diabetes, hyperlipidemia, obstructive sleep apnea with CPAP use, family history CAD who is being followed for hypertension. Since last visit he requested a change from valsartan over to losartan. Today he reports that he is doing well on losartan 50 mg b.i.d.. His home blood pressure tends to run mostly 130s over 80s, higher at times. He has a high stressful job which contributes to higher readings. He has been trying to lose weight and has been unable. He has an upcoming visit with the weight loss program. He goes to the gym periodically and tolerates exercise well. No chest discomfort at rest or with activity. No shortness of breath, palpitations, dizziness, presyncope, syncope, PND, orthopnea or edema. He has tried several antihypertensives and had leg swelling with amlodipine, gout with hydrochlorothiazide, foggy feeling with carvedilol, cough from lisinopril, feeling spacey from valsartan. [facility] Medical History Family history of premature coronary artery disease Sleep apnea HTN (hypertension) Pre-diabetes High cholesterol Family History Father CAD (coronary artery disease) Pacemaker Stented coronary artery Mother CAD (coronary artery disease) Stented coronary artery Paternal Uncle No problems noted. Social History Alcohol intake: current Alcohol intake frequency: a few times a month Patient Tobacco Use Status: Never used Tobacco Review of Systems Const Denies weakness ENT Denies dizziness Card Denies chest pain, Denies chest pain with activity, Denies syncope, Denies rapid heart rate, Denies pedal edema, Denies edema, Denies leg edema, Denies lightheadedness, Denies palpitations, Denies dyspnea, Denies dyspnea on exertion and Denies orthopnea Resp Denies cough, Denies dyspnea and Denies dyspnea on exertion GI Denies hematochezia and Denies change in stool character Musc Denies abnormal gait, Denies muscle cramps, Denies muscle weakness, Denies numbness, Denies radiating pain into limb and Denies tingling Neuro Denies abnormal gait, Denies dizziness, Denies syncope, Denies numbness, Denies tingling and Denies weakness Endo Denies palpitations Physical Exam Vital Signs: Last Vital Signs Pulse 82 01/01/25 14:04 BP 140/80 H 01/01/25 14:04 BMI result Body Mass Index 38.3 Assessment & Plan Assessment & Plan (1) HTN (hypertension): Code(s): I10 - Essential (primary) hypertension Category: Medical Plan: Blood pressure goal less than 130/80. Blood pressure mildly elevated today. Home blood pressures better controlled. Echocardiogram 12/04/2024 showed EF 60%, moderate septal asymmetric hypertrophy Continue losartan 50 mg b.i.d.. Labs recently done at PCP office will reach out to obtain. Continue to follow low-salt diet. Periodic home blood pressure monitoring and call if blood pressure consistently running greater than 140 systolic. Cardiology follow-up 6 months, sooner if needed. (2) Mild ascending aorta dilatation: Code(s): I77.810 - Thoracic aortic ectasia Category: Medical Plan: Echocardiogram 08/11/2022 with normal EF and dilated ascending aorta at 4.0 cm . Patient is of large stature which may contribute to the dilated readings.? Repeat echo as above showing ascending aorta 4.2 cm. Importance of good blood pressure control is essential. He is working on weight loss. Plan Time spent on chart review, documentation, interview and assessment Coding Level of Care Code Est Pt Level 3 (87062) Complex EM visit Add On G2211 Diagnoses HTN (hypertension) I10 Mild ascending aorta dilatation I77.810 Time Spent (min) 24
--- OUTSIDE RECORDS SUMMARY | 2025-01-01 14:56 | XMS_ITS | Clinical Summary ---
Author Organization [facility] Address [address] [place] [address] Care Team Providers Care Wheelchair Van Operator First Responder Name Role Phone Juanis Gutiérrez MD Primary Care Provider [phone] Medications Medication Sig Dispensed Refills Start Date [...] (1 of 2) 11/12/2019 Influenza Vaccine (#1) 2025 Pneumococcal Vaccine Aged Out No long er eligible based on patient's age to complete this topic RSV Ped < 20 months Aged Out No longe r eligible based on patient's age to complete this topic Care Teams Wheelchair Van Operator First Responder Relationship Specialty Start Date End Date Juanis Gutiérrez MD [address] [place] [place] [id number] PCP - General Internal Medicine 07/08/20
--- OUTSIDE RECORDS SUMMARY | 2025-01-01 14:56 | XMS_ITS | Patient Health Record ---
Author Organization [facility] [address] Address [address] [place] [address] Care Team Providers Care Cutter Woodwind Reeds Name Role Phone Juanis Gutiérrez Primary Care Provider ADINA Wilder Unavailable [phone] Reason For Referral Diagnosis 1 Obesity (E66.9) Referred Organization [facility] [address] Referred Provider ADINA RODRIGUEZ Referred Address [address] [facility] [address] ,[place], [place],[address], Referred Provider Specialty Weight Manag ement Referral Priority Routine Problems Problem Type SNOMED Code ICD Code Onset Dates Problem Status W/U Status Risk Notes Problem Obesity (E66.9) Active confirmed Plan Of Treatment Next Appt Details Provider Name:Radha kaufman, 01/09/2025 01:30:00 PM, [address] [facility], [facility] [address], [place], [address], Insurance Providers Payer Name Payer Address Payer Phone Subscriber Number Group Number Insured Name Patient Relationship to Insured Coverage Start Date Coverage End Date [facility] [address] [place] [address] [phone] [id number] Nicko Hennessy Self - patient is the insured
== END 2025-01-01 14:58 | disposition home or self-care (01) ==
LOC: HO.HCS 13:46
PROVIDERS: Family Provider Nurse Practitioner Family; Visit Provider Nurse Practitioner Family
DX: I10 Essential (primary) hypertension (principal); I77.810 Thoracic aortic ectasia
CPT/HCPCS: 99213